=== PATIENT | male | born 1945 | race Caucasian/White ===

== ENCOUNTER 2017-03-23 17:07 | Inpatient (IN) | payer MEDICARE, MEDICAID ==
[~2017-03-23] VITALS: Ht 185.4 cm; Wt 58.4 kg
[2017-03-23] MEDS ORDERED: KLONOPIN 1MG1 MG PO (17:37)
[2017-03-23] MEDS ORDERED: PRINIVIL20 MG PO (17:38)
[2017-03-23] MEDS ORDERED: RT ADVAIR 528 DISKUS IH (17:38)
[2017-03-23] MEDS ORDERED: VENTOLIN0.09 MG IH (17:38)
[2017-03-23] MEDS ORDERED: PREDNISONE20 MG PO (17:40)
[2017-03-23] MEDS ORDERED: DOXYCYCLINE 10100 MG PO (17:40)
[2017-03-23 17:53] LABS: BASO % 0.1 % (0.0-2.0); GRAN # 5.7 (1.4-6.5); GRAN % 77.5 % (42.2-75.2); HEMATOCRIT 41.3 % (42.0-52.0); HEMOGLOBIN 13.9 g/dl (13.5-18.0); LYMPH # 0.5 (1.2-3.4); LYMPH % 6.8 % (20.0-51.0); MEAN CELL VOLUME 90 fl (80.0-100.0); MEAN CORPUSCULAR HEMOGLOBIN 30 pg (27.0-31.0); MEAN CORPUSCULAR HGB CONC 34 g/dl (33.0-37.0); MEAN PLATELET VOLUME 9.8 fl (7.4-10.4); MONO # 1.1 (0.1-0.6); MONO % 15.2 % (1.7-9.3); PLATELET COUNT 271 K/mm3 (130-400); RED BLOOD COUNT 4.61 M/mm3 (4.20-5.60); REDCELL DISTRIBUTION WIDTH-CV 13.2 % (11.5-14.5); WHITE BLOOD COUNT 7.4 K/mm3 (4.8-10.8)
[2017-03-23 18:12] LABS: TROPONIN-I 0.025 ng/mL (0.000-0.034)
[2017-03-23 18:14] LABS: ADJUSTED CALCIUM 8.9 mg/dL (8.4-10.2); ALBUMIN 4.5 gm/dL (3.5-5.0); BILIRUBIN,TOTAL 0.7 mg/dL (0.0-1.0); CALCIUM 9.3 mg/dL (8.4-10.2); CREATININE, serum 0.6 mg/dL (0.66-1.25); POTASSIUM 4.3 mmol/L (3.4-5.0); TOTAL PROTEIN 7.4 gm/dL (6.4-8.2)
[2017-03-23] MEDS ORDERED: ALBUTEROL0.83 MG/ML IH (18:52)
[2017-03-23] MEDS ORDERED: VICODIN ES 7.5 PO (20:26)
[2017-03-23 21:04] VITALS: BP 141/99; PULSE 96; TEMP 97.6
[2017-03-23 22:33] VITALS: BP 125/96; PULSE 90; TEMP 98
[2017-03-24 02:56] VITALS: BP 111/81; PULSE 73; TEMP 98.4
[2017-03-24 07:29] VITALS: BP 124/84; PULSE 73; TEMP 97.5
[2017-03-24 08:14] LABS: ALBUMIN 3.4 gm/dL (3.5-5.0); BILIRUBIN,TOTAL 0.5 mg/dL (0.0-1.0); CALCIUM 8.5 mg/dL (8.4-10.2); CREATININE, serum 0.57 mg/dL (0.66-1.25); POTASSIUM 3.9 mmol/L (3.4-5.0); TOTAL PROTEIN 5.8 gm/dL (6.4-8.2)
[2017-03-24 12:12] VITALS: BP 143/89; PULSE 80; TEMP 97.9
[2017-03-24 16:00] VITALS: BP 123/77; PULSE 92; TEMP 97.8
[2017-03-24 21:37] VITALS: BP 103/70; PULSE 88; TEMP 98.3
[2017-03-24 23:29] VITALS: BP 119/79; PULSE 85; TEMP 98.1
[2017-03-25 03:43] VITALS: BP 135/87; PULSE 82; TEMP 97.7
[2017-03-25 08:17] VITALS: BP 128/88; PULSE 62; TEMP 97.8
[2017-03-25 11:27] VITALS: BP 119/75; PULSE 83
[2017-03-25 13:25] LABS: CALCIUM 8.4 mg/dL (8.4-10.2); CREATININE, serum 0.59 mg/dL (0.66-1.25); POTASSIUM 4.2 mmol/L (3.4-5.0)
[2017-03-25 16:52] VITALS: BP 129/91; PULSE 89; TEMP 98.1
[2017-03-25 20:32] VITALS: BP 141/83; PULSE 96; TEMP 98.3
[2017-03-25 23:12] VITALS: BP 137/88; PULSE 75; TEMP 98.1
[2017-03-26 02:49] VITALS: BP 140/93; PULSE 91; TEMP 98.2
[2017-03-26 08:22] VITALS: BP 127/74; PULSE 65
[2017-03-26 11:34] VITALS: BP 116/77; PULSE 75; TEMP 98.3
[2017-03-26 16:46] VITALS: BP 138/95; PULSE 72; TEMP 98.7
[2017-03-26 20:27] VITALS: BP 120/86; PULSE 78; TEMP 98
[2017-03-27 00:26] VITALS: BP 119/75; PULSE 69; TEMP 98.3
[2017-03-27 07:46] VITALS: BP 117/62; PULSE 85; TEMP 98
[2017-03-27 08:00] VITALS: BP 132/88; PULSE 77; TEMP 98.4
[2017-03-27 11:10] VITALS: BP 126/76; PULSE 87; TEMP 97.6
[2017-03-27 15:13] VITALS: BP 131/90; PULSE 74; TEMP 98
[2017-03-27 20:22] VITALS: BP 131/75; PULSE 87; TEMP 97.6
[2017-03-28 02:36] VITALS: BP 147/71; PULSE 70; TEMP 97.5
[2017-03-28 08:29] VITALS: BP 145/96; PULSE 72; TEMP 98
[2017-03-28 11:42] VITALS: BP 156/105; PULSE 69
[2017-03-28 15:15] VITALS: BP 165/98; PULSE 51; TEMP 97.4
[2017-03-28 19:21] VITALS: BP 134/92; PULSE 71; TEMP 98.5
[2017-03-28 23:13] VITALS: BP 141/90; PULSE 69; TEMP 98.7
[2017-03-29 07:38] VITALS: BP 148/93; PULSE 72; TEMP 98.5
[2017-03-29] MEDS ORDERED: OMNICEF 300MG300 MG PO (08:22)
[2017-03-29] MEDS ORDERED: STIOLTO RESPIMAT4 GM IH (08:22)
[2017-03-29] MEDS ORDERED: PREDNISONE20 MG PO (08:24)
[2017-03-29] MEDS ORDERED: MUCUS RELIEF400 M1 PO (12:01)
== END 2017-03-29 15:30 | disposition home or self-care (01) | DRG 981 ==
LOC: COL.ER 17:07 → MEDICAL 18:34
PROVIDERS: Emergency Medicine; Family Medicine; Internal Medicine
PROC: 0PS43ZZ Reposition Thoracic Vertebra, Percutaneous Approach (ICD-10-PCS; principal; 2017-03-28)
PROC: 0PU43JZ Supplement Thoracic Vertebra with Synthetic Substitute, Percutaneous Approach (ICD-10-PCS; 2017-03-28)
DX: J44.1 Chronic obstructive pulmonary disease with (acute) exacerbation (principal); E43 Unspecified severe protein-calorie malnutrition; M80.88XA Other osteoporosis with current pathological fracture, vertebra(e), initial encounter for fracture; E87.1 Hypo-osmolality and hyponatremia; I50.22 Chronic systolic (congestive) heart failure; Z68.1 Body mass index [BMI] 19.9 or less, adult; W18.30XA Fall on same level, unspecified, initial encounter; Z87.891 Personal history of nicotine dependence; I11.0 Hypertensive heart disease with heart failure
CPT/HCPCS: 99223-AI; 99232-AI; 99233-AI; 99239; C1713; G0378; J0456; J0696; J2250; J2920; J2930; J3010; J7030; J7050; J7120; J7512; Q9967

== ENCOUNTER 2017-04-01 22:02 | Observation (INO) | payer MEDICARE ==
[~2017-04-01] VITALS: Ht 185.4 cm; Wt 59.9 kg
[~2017-04-01 22:02] MED LIST: ALBUTEROL0.83 MG/ML IH; DOXYCYCLINE 10100 MG PO; KLONOPIN 1MG1 MG PO; MUCUS RELIEF400 M1 PO; OMNICEF 300MG300 MG PO; PREDNISONE20 MG PO; PRINIVIL20 MG PO; RT ADVAIR 528 DISKUS IH; STIOLTO RESPIMAT4 GM IH; VENTOLIN0.09 MG IH; VICODIN ES 7.5 PO
[2017-04-01 22:39] LABS: BASO % 0.1 % (0.0-2.0); EOS % 0.3 % (0-4.0); GRAN # 5.1 (1.4-6.5); GRAN % 66.9 % (42.2-75.2); HEMATOCRIT 39.7 % (42.0-52.0); HEMOGLOBIN 13.6 g/dl (13.5-18.0); LYMPH # 1.2 (1.2-3.4); LYMPH % 15.7 % (20.0-51.0); MEAN CELL VOLUME 89 fl (80.0-100.0); MEAN CORPUSCULAR HEMOGLOBIN 30 pg (27.0-31.0); MEAN CORPUSCULAR HGB CONC 34 g/dl (33.0-37.0); MEAN PLATELET VOLUME 8.3 fl (7.4-10.4); MONO # 1.2 (0.1-0.6); MONO % 16.2 % (1.7-9.3); PLATELET COUNT 222 K/mm3 (130-400); RED BLOOD COUNT 4.48 M/mm3 (4.20-5.60); REDCELL DISTRIBUTION WIDTH-CV 13.1 % (11.5-14.5); WHITE BLOOD COUNT 7.6 K/mm3 (4.8-10.8)
[2017-04-01 22:47] LABS: ADJUSTED CALCIUM 8.6 mg/dL (8.4-10.2); ALBUMIN 3.8 gm/dL (3.5-5.0); BILIRUBIN,TOTAL 1.4 mg/dL (0.0-1.0); CALCIUM 8.4 mg/dL (8.4-10.2); CREATININE, serum 0.61 mg/dL (0.66-1.25); POTASSIUM 3.9 mmol/L (3.4-5.0); TOTAL PROTEIN 6.4 gm/dL (6.4-8.2)
[2017-04-01 23:28] LABS: TROPONIN-I 0.05 ng/mL (0.000-0.034)
[2017-04-02] VITALS (13 sets, daily range): BP systolic 104–152; BP diastolic 60–106; PULSE 61–108; TEMP 97.3–98.9
[2017-04-02 02:53] LABS: PROTHROMBIN TIME 11.6 SECONDS (9.7-12.8)
[2017-04-02 02:56] LABS: PARTIAL THROMBOPLASTIN TIME 29.4 SECONDS (26.0-37.0)
[2017-04-02 03:15] LABS: MAGNESIUM 2.1 mg/dL (1.6-2.3)
[2017-04-02] MEDS ORDERED: ASPI325T6 PO (13:15)
== END 2017-04-02 16:23 | disposition home or self-care (01) ==
LOC: COL.ER 22:02 → MEDICAL 23:47
PROVIDERS: Emergency Medicine; Nurse Practitioner Family
DX: J44.1 Chronic obstructive pulmonary disease with (acute) exacerbation (principal); I11.0 Hypertensive heart disease with heart failure; I50.22 Chronic systolic (congestive) heart failure; R07.9 Chest pain, unspecified; E87.1 Hypo-osmolality and hyponatremia; E43 Unspecified severe protein-calorie malnutrition; R09.02 Hypoxemia; Z99.81 Dependence on supplemental oxygen; Z87.891 Personal history of nicotine dependence; Z87.81 Personal history of (healed) traumatic fracture
CPT/HCPCS: G0378; J0360; J1650; J2930; J7512

== ENCOUNTER 2017-04-10 21:04 | Emergency (ER) | payer MEDICARE ==
[~2017-04-10] VITALS: Ht 185.4 cm; Wt 56.8 kg
[~2017-04-10 21:04] MED LIST changes: +ASPI325T6 PO
[2017-04-10 21:06] VITALS: BP 159/93; TEMP 97.8
[2017-04-10 22:04] LABS: BASO % 0.3 % (0.0-2.0); EOS # 0.1 (0.0-0.7); EOS % 0.5 % (0-4.0); GRAN # 8.8 (1.4-6.5); GRAN % 74.6 % (42.2-75.2); HEMATOCRIT 39.7 % (42.0-52.0); HEMOGLOBIN 13.6 g/dl (13.5-18.0); LYMPH # 1.4 (1.2-3.4); MEAN CELL VOLUME 88 fl (80.0-100.0); MEAN CORPUSCULAR HEMOGLOBIN 30 pg (27.0-31.0); MEAN CORPUSCULAR HGB CONC 34 g/dl (33.0-37.0); MONO # 1.4 (0.1-0.6); MONO % 12.1 % (1.7-9.3); PLATELET COUNT 162 K/mm3 (130-400); RED BLOOD COUNT 4.49 M/mm3 (4.20-5.60); REDCELL DISTRIBUTION WIDTH-CV 13.1 % (11.5-14.5); WHITE BLOOD COUNT 11.8 K/mm3 (4.8-10.8)
[2017-04-10 22:19] LABS: ADJUSTED CALCIUM 8.5 mg/dL (8.4-10.2); ALANINE AMINOTRANSFERASE 43 U/L (21-72); ALBUMIN 3.5 gm/dL (3.5-5.0); ALKALINE PHOSPHATASE 110 U/L (50-136); ANION GAP 8 mmol/L (7-16); BILIRUBIN,TOTAL 1.1 mg/dL (0.0-1.0); BLOOD UREA NITROGEN 18 mg/dL (9-20); CALCIUM 8.1 mg/dL (8.4-10.2); CARBON DIOXIDE 30 mmol/L (22-30); GLUCOSE 85 mg/dL (74-106); POTASSIUM 4.4 mmol/L (3.4-5.0); SODIUM 124 mmol/L (137-145); TOTAL PROTEIN 6.1 gm/dL (6.4-8.2)
[2017-04-10 22:31] LABS: B-TYPE NATRIURETIC PEPTIDE 1700 pg/mL (0-125); TROPONIN-I 0.027 ng/mL (0.000-0.034)
[2017-04-10 22:35] LABS: CHLORIDE 86 mmol/L (98-107)
[2017-04-10] MEDS ORDERED: NORCO 325 MG-51 TAB PO (23:53)
[2017-04-10] MEDS ORDERED: PREDNISONE20 MG PO (23:53)
[2017-04-11 01:41] LABS: TROPONIN-I 0.025 ng/mL (0.000-0.034)
[2017-04-11 03:00] VITALS: PULSE 88
== END 2017-04-11 03:00 | disposition home or self-care (01) ==
LOC: COL.ER 21:04
PROVIDERS: Emergency Medicine
DX: J44.1 Chronic obstructive pulmonary disease with (acute) exacerbation (principal); Z99.81 Dependence on supplemental oxygen; Z87.891 Personal history of nicotine dependence; E87.1 Hypo-osmolality and hyponatremia
CPT/HCPCS: J2930; J3010; J7030; Q9967

== ENCOUNTER 2017-04-13 11:18 | Emergency (ER) | payer MEDICARE ==
[~2017-04-13] VITALS: Ht 188 cm; Wt 56.8 kg
[~2017-04-13 11:18] MED LIST changes: +NORCO 325 MG-51 TAB PO
[2017-04-13 11:25] VITALS: TEMP 96.9
[2017-04-13 11:52] LABS: BASO % 0.3 % (0.0-2.0); EOS % 0.4 % (0-4.0); GRAN # 5.7 (1.4-6.5); GRAN % 73.7 % (42.2-75.2); HEMATOCRIT 39.2 % (42.0-52.0); HEMOGLOBIN 13.6 g/dl (13.5-18.0); LYMPH # 1.1 (1.2-3.4); LYMPH % 13.5 % (20.0-51.0); MEAN CELL VOLUME 88 fl (80.0-100.0); MEAN CORPUSCULAR HEMOGLOBIN 31 pg (27.0-31.0); MEAN CORPUSCULAR HGB CONC 35 g/dl (33.0-37.0); MEAN PLATELET VOLUME 9.5 fl (7.4-10.4); MONO # 0.9 (0.1-0.6); MONO % 11.7 % (1.7-9.3); PLATELET COUNT 166 K/mm3 (130-400); RED BLOOD COUNT 4.44 M/mm3 (4.20-5.60); REDCELL DISTRIBUTION WIDTH-CV 13.2 % (11.5-14.5); WHITE BLOOD COUNT 7.8 K/mm3 (4.8-10.8)
[2017-04-13 12:38] LABS: ADJUSTED CALCIUM 8.6 mg/dL (8.4-10.2); ALBUMIN 3.7 gm/dL (3.5-5.0); BILIRUBIN,TOTAL 0.8 mg/dL (0.0-1.0); CALCIUM 8.4 mg/dL (8.4-10.2); CREATININE, serum 0.59 mg/dL (0.66-1.25); MAGNESIUM 1.9 mg/dL (1.6-2.3); PHOSPHOROUS 3.1 mg/dL (2.5-4.5); TOTAL PROTEIN 6.2 gm/dL (6.4-8.2)
[2017-04-13 12:50] LABS: TROPONIN-I 0.031 ng/mL (0.000-0.034)
[2017-04-13 16:33] VITALS: BP 140/92; PULSE 98
== END 2017-04-13 17:16 | disposition home or self-care (01) ==
LOC: COL.ER 11:18
PROVIDERS: Emergency Medicine
DX: J44.9 Chronic obstructive pulmonary disease, unspecified (principal); E87.1 Hypo-osmolality and hyponatremia; R29.898 Other symptoms and signs involving the musculoskeletal system; I11.0 Hypertensive heart disease with heart failure; I50.9 Heart failure, unspecified
CPT/HCPCS: J3411; J3475; J7030